=== PATIENT | male | born 1975 | race Caucasian/White ===

== ENCOUNTER 2017-12-19 06:58 | Day surgery (SDC) | payer BC ==
[~2017-12-19 06:58] MED LIST: Lidocaine 1%/Sod Bicarbonate in NS 8.4% 1 ML Syringe IDERM PRN; Sodium Chloride 0.9% 10 ML Syringe FLUSH PRN
[2017-12-19] MEDS ORDERED: Propofol 200 MG/20 ML SDV ONE (07:16)
[2017-12-19] MEDS ORDERED: ceFAZolin 1 GM Vial ONE (07:16)
[2017-12-19] MEDS ORDERED: Ondansetron 4 MG/2 ML SDV ONE (07:16)
[2017-12-19] MEDS ORDERED: Midazolam 1 MG/ML 2 ML SDV ONE (07:16)
[2017-12-19] MEDS ORDERED: fentaNYL 250 MCG/5 ML SDV ONE (07:16)
[2017-12-19] MEDS: Lactated Ringers 1,000 ML IV SCH ×2 (07:20→12:16)
--- NOTE | 2017-12-19 07:23 | PCM.PREANE ---
Preanesthetic Assessment - Anesthesia/Transfusion/Family Hx Anesthesia History: Prior Anesthesia Without Reaction Family History of Anesthesia Reaction: No Transfusion History: No Prior Transfusion(s) - Review of Systems General: No Symptoms, Other (ETOH 1-2 per day) Pulmonary: Other (current smoker, 1ppd) Cardiovascular: No Symptoms Gastrointestinal: Other (heartburn noted with onion consumption) Neurological: No Symptoms Other: Reports: None - Physical Assessment NPO Status Date: 12/19/17 NPO Status Time: 00:01 Pulse: 67 O2 Sat by Pulse Oximetry: 99 Respiratory Rate: 16 Blood Pressure: 136/95 Temperature: 36.8 C Weight: 54 kg ASA Class: 2 Mental Status: Alert & Oriented x3 Airway Class: Mallampati = 2 Dentition: Reports: Normal Dentition Thyro-Mental Finger Breadths: 3 Mouth Opening Finger Breadths: 3 ROM/Head Extension: Full Lungs: Clear to Auscultation, Normal Respiratory Effort Cardiovascular: Regular Rate, Regular Rhythm - Allergies Allergies/Adverse Reactions: Allergies Allergy/AdvReac Type Severity Reaction Status Date / Time No Known Allergies Allergy Verified 12/18/17 22:16 - Blood Blood Available: No Product(s) Available: None - Anesthesia Plan Pre-Op Medication Ordered: None - Acknowledgements Anesthesia Type Planned: General Anesthesia Pt an Appropriate Candidate for the Planned Anesthesia: Yes Alternatives and Risks of Anesthesia Discussed w Pt/Guardian: Yes Pt/Guardian Understands and Agrees with Anesthesia Plan: Yes PreAnesthesia Questionnaire Cardiovascular History: Reports: None Respiratory History: Reports: None Gastrointestinal History: Reports: None Genitourinary History: Reports: None MACHINE OPERATOR History: Reports: None Musculoskeletal History: Reports: None Neurological History: Reports: Migraines Psychiatric History: Reports: Addiction Other Psychiatric History: etoh abuse Endocrine/Metabolic History: Reports: None Hematologic History: Reports: None Immunologic History: Reports: None Oncologic (Cancer) History: Reports: None Dermatologic History: Reports: None - Past Surgical History Head Surgeries/Procedures: Reports: None HEENT Surgical History: Reports: Eye Surgery, Tonsillectomy Cardiovascular Surgical History: Reports: None Respiratory Surgical History: Reports: None GI Surgical History: Reports: None Female Surgical History: Reports: None Male Surgical History: Reports: None Endocrine Surgical History: Reports: None Neurological Surgical History: Reports: None Musculoskeletal Surgical History: Reports: None Oncologic Surgical History: Reports: None - SUBSTANCE USE Smoking Status *Q: Current Every Day Smoker Recreational Drug Use History: No - HOME MEDS Home Medications: Home Meds . [No Known Home Meds] 12/18/17 [History] - CURRENT (IN HOUSE) MEDS Current Meds: Current Medications Lactated Ringer's (Ringers, Lactated) 1,000 mls @ 125 mls/hr IV ASDIRECTED CHARITO Stop: 12/19/17 23:00 Lidocaine/Sodium Bicarbonate (Buffered Lidocaine 1% In Ns 8.4%) 0.25 ml IDERM ONETIME PRN PRN Reason: Prior to IV Start Stop: 12/19/17 18:00 Sodium Chloride (Saline Flush) 10 ml FLUSH ASDIRECTED PRN PRN Reason: Keep Vein Open Stop: 12/19/17 18:00 Discontinued Medications Cefazolin Sodium (Ancef) Confirm Administered Dose 2 gm .ROUTE .STK-MED ONE Stop: 12/19/17 07:17 Fentanyl (Sublimaze) Confirm Administered Dose 250 mcg .ROUTE .STK-MED ONE Stop: 12/19/17 07:17 Midazolam HCl (Versed 1 Mg/Ml) Confirm Administered Dose 2 mg .ROUTE .STK-MED ONE Stop: 12/19/17 07:17 Ondansetron HCl (Zofran) Confirm Administered Dose 4 mg .ROUTE .STK-MED ONE Stop: 12/19/17 07:17 Propofol (Diprivan 20 Ml) Confirm Administered Dose 200 mg .ROUTE .STK-MED ONE Stop: 12/19/17 07:17
[2017-12-19] MEDS ORDERED: Dexamethasone 4 MG/ML 5 ML MDV ONE (08:48)
[2017-12-19] MEDS: Bupivacaine 0.25% 30 ML SDV ONE ×2 (08:48→10:54)
[2017-12-19] MEDS ORDERED: Ketamine 500 mg/10 ML MDV ONE (09:03)
[2017-12-19] MEDS ORDERED: Lactated Ringers 1,000 ML ONE (09:29)
[2017-12-19] MEDS ORDERED: fentaNYL 100 MCG/2 ML SDV ONE (10:33)
[2017-12-19] MEDS ORDERED: Ketorolac 30 MG/ML SDV ONE (11:13)
--- NOTE | 2017-12-19 11:20 | PCM.POSTAN ---
POST ANESTHESIA ASSESSMENT - MENTAL STATUS Mental Status: Alert, Oriented - VITAL SIGNS Pulse Rate: 96 SaO2: 97 Resp Rate: 13 Blood Pressure: 133/106 Temperature: 36.3 C - RESPIRATORY Respiratory Status: Respiratory Rate WNL, Airway Patent, O2 Saturation Stable, Supplemental Oxygen - CARDIOVASCULAR CV Status: Pulse Rate WNL, Blood Pressure Stable - GASTROINTESTINAL GI Status: No Symptoms - PAIN Pain Score: 0 - POST OP HYDRATION Hydration Status: Adequate & Stable
[2017-12-19] MEDS ORDERED: Ondansetron 4 MG/2 ML SDV IVPUSH PRN (11:33)
[2017-12-19] MEDS ORDERED: fentaNYL 100 MCG/2 ML SDV IVPUSH PRN (11:33)
--- NOTE | 2017-12-19 13:14 | PCM48HPAN ---
Post Anesthesia Note - EVALUATION WITHIN 48HRS OF ANESTHETIC Vital Signs in Normal Range: Yes Patient Participated in Evaluation: Yes Respiratory Function Stable: Yes Airway Patent: Yes Cardiovascular Function Stable: Yes Hydration Status Stable: Yes Pain Control Satisfactory: Yes Nausea and Vomiting Control Satisfactory: Yes Mental Status Recovered: Yes Pulse Rate: 96 Resp Rate: 13 Temperature: 36.3 C Blood Pressure: 133/106
--- NOTE | 2018-01-17 00:59 | OR ---
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 [employer] WALKER: Grecia Vaca. INDICATIONS: Mr. Thapa is a pleasant gentleman with symptomatic Dupuytren's disease of the left hand. He had significant palmar fibromatosis with contracture and some discomfort. We discussed the risks, benefits, and alternatives of both conservative as well as surgical treatment. The patient verbalized understanding and wished to proceed with surgery. We discussed the risk of increased skin complication secondary to smoking history. He understands. DESCRIPTION OF PROCEDURE: The patient was brought to the operating room, underwent general anesthetic. Left upper extremity was prepped and draped in a standard orthopedic fashion. Surgical pause was performed to identify the appropriate patient and appropriate extremity to be operated upon. Preoperative antibiotics were given. small and long finger. I utilized a Linda style incision over the small finger, then transversely across the palm to the proximal palmar crease. Sharp dissection was carried through skin and subcutaneous tissue. Hemostasis was obtained distally. Again in the small finger, he had a pretendinous, natatory, and spiral cord extending to the PIP joint. We identified both the radial and ulnar nerve vascular bundles in the small finger, identified the core proximally. This was truncated and dissected and removed distally all the way to the level of the PIP joint. This immediately improved the contracture. 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 So we extended our incision again and created a flap. 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 We dissected proximally, identified the cords, and then released the cord distally down to the level of the MP joints, both long and ring finger while protecting the neurovascular structure. This resulted in removal of the pretendinous cord in small, ring, and long fingers. We irrigated the wounds thoroughly and then closed the skin with 5-0 nylon. He was placed in a well-padded dressing and back to recovery in satisfactory condition. OPERATION PERFORMED: ANESTHESIA: ESTIMATED BLOOD LOSS: MMODAL /[id number]
== END 2017-12-19 14:35 | disposition home or self-care (01) ==
LOC: JD.SDS 06:58
PROVIDERS: ATTEND Orthopaedic Surgery
DX: M72.0 Palmar fascial fibromatosis [Dupuytren] (principal); F17.210 Nicotine dependence, cigarettes, uncomplicated
CPT/HCPCS: 26123; J0690; J1100; J1885; J2250; J2405; J3010; J3490; J7120; 01810; J2704